=== PATIENT | female | born 1960 | race African-American/Black ===

== ENCOUNTER 2018-12-03 07:13 | Inpatient (IN) | payer MEDICAID ==
[~2018-12-03] VITALS: Ht 165.1 cm; Wt 89.8 kg
[~2018-12-03 07:13] MED LIST: AMLO1CAP5 PO; CHOL500010 PO; LEVE750T52 PO
[2018-12-03] MEDS ORDERED: CEFOXITIN SODIUM 2 G in DEXT 5% WATER 100 ML IV ONE (07:30)
[2018-12-03] MEDS ORDERED: LACTATED RINGERS 1,000 ML IV SCH (07:45)
[2018-12-03] MEDS ORDERED: LIDOCAINE HCL 1% 20ML VIAL (Pyxis) INJ ONE (08:30)
[2018-12-03] MEDS ORDERED: BUPIVACAINE HCL 0.5% (5MG/ML) 50ML ONE (08:31)
[2018-12-03] MEDS ORDERED: SKIN ADHESIVE 0.7 GM EA TOP ONE (08:31)
[2018-12-03] MEDS ORDERED: BACITRACIN 50,000 UNITS/VIAL ONE (08:31)
[2018-12-03] MEDS ORDERED: NORMAL SALINE 0.9% 10 ML SYR ONE (08:32)
[2018-12-03] MEDS ORDERED: MIDAZOLAM HCL 2 MG/2 ML VIAL ONE (09:22)
[2018-12-03] MEDS ORDERED: ROCURONIUM BROMIDE 10MG/ML VIAL 5ML IV ONE (09:23)
[2018-12-03] MEDS ORDERED: GLYCOPYRROLATE 0.2 MG/ML 2ML VIAL ONE ×2 (09:27→11:03)
[2018-12-03] MEDS ORDERED: PROPOFOL 200MG/20ML VIAL IV ONE (09:27)
[2018-12-03] MEDS ORDERED: KETOROLAC 30MG/ML VIAL ONE (10:46)
[2018-12-03] MEDS ORDERED: NEOSTIGMINE METHYLSULFATE 1MG/ML 10 ML VIAL ONE (11:03)
[2018-12-03] MEDS ORDERED: ONDANSETRON HCL 4MG/2ML INJ IV PRN (11:45)
[2018-12-03] MEDS ORDERED: KETOROLAC 30MG/ML VIAL IV SCH (11:45)
[2018-12-03] MEDS ORDERED: HYDROMORPHONE HCL/PF 2MG/ML CPJ IV PRN (11:45)
[2018-12-03 12:00] VITALS: BP 124/66
[2018-12-03 13:52] VITALS: BP 124/66
[2018-12-03 14:00] VITALS: BP 124/66
[2018-12-03 16:00] VITALS: BP 116/67
[2018-12-03] MEDS: SODIUM CHLORIDE 0.45% 1,000 ML IV SCH (16:41)
[2018-12-03] MEDS: AMLODIPINE 5MG TABLET PO SCH (17:28)
[2018-12-03] MEDS: LEVETIRACETAM 250MG TABLET PO SCH (17:28)
[2018-12-03] MEDS: BENAZEPRIL 10MG TABLET PO SCH (17:28)
[2018-12-03] MEDS: KETOROLAC 30MG/ML VIAL IV SCH ×2 (17:29→23:58)
[2018-12-03 20:00] VITALS: BP 122/64
[2018-12-04] VITALS: BP 106/61
[2018-12-04 04:00] VITALS: BP 107/55
[2018-12-04] MEDS: KETOROLAC 30MG/ML VIAL IV SCH (06:13)
[2018-12-04] MEDS: SODIUM CHLORIDE 0.45% 1,000 ML IV SCH (06:23)
[2018-12-04] MEDS ORDERED: CHOLECALCIFEROL (D3) 1000 UNIT TABLET PO SCH (09:00)
[2018-12-04] MEDS: LEVETIRACETAM 250MG TABLET PO SCH (09:17)
[2018-12-04] MEDS: BENAZEPRIL 10MG TABLET PO SCH (09:17)
[2018-12-04] MEDS: AMLODIPINE 5MG TABLET PO SCH (09:18)
[2018-12-04 09:27] VITALS: BP 120/67
== END 2018-12-04 10:26 | disposition home or self-care (01) | DRG 263 ==
LOC: OR 07:13 → 6EST 07:14
PROVIDERS: ADMIT Specialist; ATTEND Specialist
PROC: 0FT44ZZ Resection of Gallbladder, Percutaneous Endoscopic Approach (ICD-10-PCS; principal; 2018-12-03)
DX: K80.10 Calculus of gallbladder with chronic cholecystitis without obstruction (principal); E55.9 Vitamin D deficiency, unspecified; G40.909 Epilepsy, unspecified, not intractable, without status epilepticus; I10 Essential (primary) hypertension; K82.8 Other specified diseases of gallbladder; Z90.710 Acquired absence of both cervix and uterus; Z79.899 Other long term (current) drug therapy; Z90.49 Acquired absence of other specified parts of digestive tract
CPT/HCPCS: 88304; J0694; J1885; J2250; J2704; J2710; J3490; J7060

== ENCOUNTER 2024-10-11 00:21 | Emergency (ER) | payer MEDICAID, OTHER ==
[~2024-10-11] VITALS: Ht 167.6 cm; Wt 78.0 kg
[~2024-10-11 00:21] MED LIST changes: -LEVE750T52 PO; +LEVE750T66 PO
[2024-10-11 00:31] VITALS: BP 146/80; PULSE 76; RESP 18; TEMP 98.4; O2SAT 99
[2024-10-11] MEDS ORDERED: HYDROCODONE/ACETAMINOPHEN 5/325MG TABLET PO ONE (01:00)
[2024-10-11 03:05] LABS: EOSINOPHILS % 4.1 % (0.0-5.0); HEMATOCRIT. 35.9 % (36.0-48.0); HEMOGLOBIN. 12.4 g/dL (12.0-16.0); LYMPHOCYTES % 36.7 % (20.0-50.0); MEAN CORPUSCULAR HGB CONC 34.6 g/dL (31.0-37.0); MEAN CORPUSCULAR VOLUME 95.4 fL (81.0-99.0); MEAN PLATELET VOLUME 7.8 fl (7.4-10.4); MONOCYTES % 11.1 % (2.0-8.0); NEUTROPHILS % 47.1 % (40.0-76.0); PLATELET 267 x1000/uL (130-400); RED BLOOD CELL COUNT 3.76 mill/uL (4.2-5.4); RED CELL DISTRIBUTION WIDTH 13.6 % (11.6-14.6); WHITE BLOOD COUNT 5.6 x1000/uL (4.5-11.0)
[2024-10-11 03:08] LABS: CHLORIDE 106 mEq/L (98-107); POTASSIUM 4.2 mEq/L (3.5-5.1); SODIUM 140 mEq/L (136-145)
[2024-10-11 03:09] LABS: CALCIUM 9.9 mg/dL (8.7-10.4); CARBON DIOXIDE 29 mEq/L (21-32)
[2024-10-11 03:14] LABS: CREATININE 0.8 mg/dL (0.6-1.0); GLUCOSE 122 mg/dL (70-105); UREA NITROGEN BLOOD 15 mg/dL (9-23)
[2024-10-11 03:16] LABS: ALANINE AMINOTRANSFERASE 17 IU/L (10-49); ALBUMIN 4.1 g/dL (3.2-4.8); ASPARTATE AMINOTRANSFERASE 22 IU/L (<34); BILIRUBIN TOTAL 0.4 mg/dL (0.1-1.0); PROTEIN TOTAL 6.9 g/dL (6.0-8.3)
[2024-10-11] MEDS ORDERED: POLY17PO3 MT (05:03)
[2024-10-11] MEDS ORDERED: SIME80TA15 MT (05:03)
[2024-10-11] MEDS ORDERED: SENN-139 MT (05:03)
[2024-10-11] MEDS ORDERED: MAGN296S8 MT (05:03)
[2024-10-11] MEDS ORDERED: FAMO20TA8 MT (05:04)
[2024-10-11 05:14] LABS: CLARITY URINE CLEAR (CLEAR); COLOR URINE YELLOW (YELLOW); GLUCOSE URINE NEGATIVE (NEGATIVE); KETONES URINE NEGATIVE (NEGATIVE); LEUKOCYTE ESTERASE URINE NEGATIVE (NEGATIVE); NITRITE URINE NEGATIVE (NEGATIVE); OCCULT BLOOD URINE TRACE (NEGATIVE); PH URINE 5.5 (4.5-8.0); PROTEIN URINE NEGATIVE (NEGATIVE)
[2024-10-11 06:08] LABS: SQUAMOUS EPITHELIAL CELL URINE FEW /lpf (RARE/1+)
[2024-10-11 06:09] LABS: BACTERIA URINE NONE SEEN; RBC URINE 0-2 /hpf (0-2); WBC URINE 0-2 /hpf (0-2)
[2024-10-11] MEDS: SIMETHICONE 80MG TABLET CHEW PO PRN (06:48)
[2024-10-11] MEDS: HYDROCODONE/ACETAMINOPHEN 5/325MG TABLET PO NR (06:49)
[2024-10-11] MEDS: KETOROLAC 30MG/ML VIAL IM NR (06:51)
[2024-10-11] MEDS: MAGNESIUM/ALUMINUM HYDROXIDE/SIMETHICONE 30ML UDC PO NR (06:52)
[2024-10-11] MEDS: KETOROLAC 30MG/ML VIAL IM ONE (06:56)
[2024-10-11] MEDS: MAGNESIUM/ALUMINUM HYDROXIDE/SIMETHICONE 30ML UDC PO ONE (06:56)
== END 2024-10-11 07:06 | disposition home or self-care (01) ==
LOC: ER 00:21
DX: R10.84 Generalized abdominal pain (principal); I10 Essential (primary) hypertension; Z86.59 Personal history of other mental and behavioral disorders
CPT/HCPCS: 99285; 74176; 80053; 81003; 83690; 83735; 85025; 36415; 96372; J1885

== ENCOUNTER 2024-11-09 01:52 | Emergency (ER) | payer MEDICAID, OTHER ==
[~2024-11-09] VITALS: Ht 167.6 cm; Wt 77.0 kg
[~2024-11-09 01:52] MED LIST changes: +FAMO20TA8 MT; +MAGN296S8 MT; +POLY17PO3 MT; +SENN-139 MT; +SIME80TA15 MT
[2024-11-09 01:59] VITALS: BP 148/82; PULSE 82; RESP 18; TEMP 37.1; O2SAT 98
[2024-11-09 04:04] LABS: BASOPHILS % 1.2 % (0.0-2.0); EOSINOPHILS % 1.5 % (0.0-5.0); HEMATOCRIT. 36.6 % (36.0-48.0); HEMOGLOBIN. 12.8 g/dL (12.0-16.0); MEAN CORPUSCULAR HEMOGLOBIN 33.2 pg (28.0-32.0); MEAN CORPUSCULAR HGB CONC 35.1 g/dL (31.0-37.0); MEAN CORPUSCULAR VOLUME 94.7 fL (81.0-99.0); MEAN PLATELET VOLUME 7.7 fl (7.4-10.4); MONOCYTES % 10.1 % (2.0-8.0); NEUTROPHILS % 49.2 % (40.0-76.0); PLATELET 255 x1000/uL (130-400); RED BLOOD CELL COUNT 3.87 mill/uL (4.2-5.4); RED CELL DISTRIBUTION WIDTH 13.5 % (11.6-14.6); WHITE BLOOD COUNT 5.3 x1000/uL (4.5-11.0)
[2024-11-09 04:16] LABS: CHLORIDE 104 mEq/L (98-107); SODIUM 138 mEq/L (136-145)
[2024-11-09 04:17] LABS: CALCIUM 9.5 mg/dL (8.7-10.4); CARBON DIOXIDE 25 mEq/L (21-32)
[2024-11-09 04:22] LABS: CREATININE 0.8 mg/dL (0.6-1.0); GLUCOSE 125 mg/dL (70-105); UREA NITROGEN BLOOD 8 mg/dL (9-23)
[2024-11-09 04:24] LABS: ASPARTATE AMINOTRANSFERASE 14 IU/L (<34); BILIRUBIN DIRECT 0.1 mg/dL (<=3.0); BILIRUBIN TOTAL 0.5 mg/dL (0.1-1.0); PROTEIN TOTAL 6.9 g/dL (6.0-8.3)
[2024-11-09] MEDS: ACETAMINOPHEN 325MG TABLET PO ONE (07:29)
[2024-11-09 09:53] LABS: CLARITY URINE CLOUDY (CLEAR); COLOR URINE YELLOW (YELLOW); GLUCOSE URINE NEGATIVE (NEGATIVE); KETONES URINE NEGATIVE (NEGATIVE); LEUKOCYTE ESTERASE URINE 3+ (NEGATIVE); NITRITE URINE POSITIVE (NEGATIVE); OCCULT BLOOD URINE 1+ (NEGATIVE); PH URINE 5.5 (4.5-8.0); PROTEIN URINE NEGATIVE (NEGATIVE); SPECIFIC GRAVITY URINE 1.021 (1.005-1.030); UROBILINOGEN URINE 0.2 E.U./dL (0.2-1.0)
[2024-11-09 10:07] LABS: BACTERIA URINE 3+; SQUAMOUS EPITHELIAL CELL URINE 2+ /lpf (RARE/1+); WBC URINE 50-100 /hpf (0-2); YEAST URINE NONE SEEN
[2024-11-09] MEDS ORDERED: CEFP200T13 MT (10:33)
[2024-11-09] MEDS: LEVETIRACETAM 500MG TABLET PO ONE (12:45)
== END 2024-11-09 13:43 | disposition home or self-care (01) ==
LOC: ER 01:52
DX: R10.84 Generalized abdominal pain (principal); N39.0 Urinary tract infection, site not specified; I10 Essential (primary) hypertension; G40.909 Epilepsy, unspecified, not intractable, without status epilepticus; Z90.710 Acquired absence of both cervix and uterus; Z90.49 Acquired absence of other specified parts of digestive tract
CPT/HCPCS: 36415; 74176; 80048; 80076; 81003; 85025; 87077; 87186; 99284